=== PATIENT | male | born 1945 | race Caucasian/White ===

== ENCOUNTER 2018-05-03 11:10 | Inpatient (IN) | payer OTHER, MEDICARE ==
[~2018-05-03] VITALS: Ht 170.2 cm; Wt 73.0 kg
[2018-05-03 11:46] LABS: HEMATOCRIT 43.9 % (38.0-50.0); HEMOGLOBIN 14.9 G/DL (12.5-16.6); MCH 30.5 PG (29.0-34.0); MCHC 33.9 G/DL (30.0-36.0); MCV 89.8 FL (86-99); PLATELET COUNT 206 K/uL (156-360); RBC DIS.WIDTH-CV 13.2 % (11.8-14.6); RBC DIS.WIDTH-SD 43.4 % (39-53); RED BLOOD COUNT 4.89 M/uL (4.00-5.50); WHITE BLOOD COUNT 5.9 K/uL (4.1-10.2)
[2018-05-03 11:55] LABS: CHLORIDE 102 mEq/L (99-109); POTASSIUM 4.8 mEq/L (3.7-5.4); SODIUM 139 mEq/L (136-147)
[2018-05-03 11:57] LABS: GLUCOSE 112 mg/dL (70-99)
[2018-05-03 12:01] LABS: CREATININE 1.2 mg/dL (0.6-1.3); GFR ESTIMATE (CALCULATED) > 59 mL/min/ (58.99-99999)
[2018-05-03 12:02] LABS: UREA NITROGEN (BUN) 21 mg/dL (9-23)
[2018-05-03 13:42] LABS: APPEARANCE CLEAR ((CLEAR)); BILIRUBIN NEGATIVE; BLOOD NEGATIVE; COLOR STRAW ((YELLOW)); GLUCOSE (STRIP) NEGATIVE; KETONES NEGATIVE; LEUKOCYTES NEGATIVE; NITRITE NEGATIVE; PROTEIN (STRIP) NEGATIVE; SPECIFIC GRAVITY 1.006 (1.000-1.030); UCUL ADDED? NO; UROBILINOGEN 0.2 MG/DL (0.2-1.0)
[2018-05-03] MEDS ORDERED: LOSARTAN POTAS100 MG PO (14:23)
[2018-05-03] MEDS ORDERED: GLIMEPIRIDE1 MG PO (14:24)
[2018-05-03] MEDS ORDERED: CLONIDINE HCL0.2 MG PO (14:25)
[2018-05-03] MEDS ORDERED: MELOXICAM15 MG PO (14:26)
[2018-05-03] MEDS ORDERED: BENADRYL ALLERG25 MG PO (14:28)
[2018-05-03] MEDS ORDERED: TRIAMCINOLONE A30 GM TP (14:29)
[2018-05-03 16:00] LABS: TROP-I INTERPRETATION NEGATIVE; TROPONIN-I < 0.01 ng/mL (0.0-0.30)
[2018-05-03 16:08] LABS: THYROTROPIN (TSH) 4.3 MIU/L (0.4-5.5)
[2018-05-03 17:58] VITALS: BP 183/117
[2018-05-03 19:36] VITALS: BP 137/987
[2018-05-03 21:12] LABS: TROP-I INTERPRETATION NEGATIVE; TROPONIN-I < 0.01 ng/mL (0.0-0.30)
[2018-05-04] VITALS (8 sets, daily range): BP systolic 123–170; BP diastolic 57–102
[2018-05-04 06:05] LABS: HEMATOCRIT 41.9 % (38.0-50.0); MCHC 33.4 G/DL (30.0-36.0); MCV 89.9 FL (86-99); PLATELET COUNT 210 K/uL (156-360); RBC DIS.WIDTH-CV 13.4 % (11.8-14.6); RBC DIS.WIDTH-SD 43.9 % (39-53); RED BLOOD COUNT 4.66 M/uL (4.00-5.50); WHITE BLOOD COUNT 5.7 K/uL (4.1-10.2)
[2018-05-04 06:44] LABS: ALBUMIN 3.8 G/DL (3.2-4.8); ALKALINE PHOSPHATASE 56 IU/L (3-129); ALT (GPT) 8 IU/L (3-49); AST (GOT) 13 IU/L (2-34); CHLORIDE 100 MEQ/L (99-109); CREATININE 1.1 MG/DL (0.6-1.3); GFR ESTIMATE (CALCULATED) > 59 mL/min/ (58.99-99999); GLUCOSE 111 mg/dL (70-99); HDL CHOLESTEROL 30 MG/DL (Desirable>=40); LDL CHOLESTEROL 112 mg/dL (Desirable<100); NON-HDL CHOLESTEROL 150 mg/dL (Desirable<160); POTASSIUM 4.5 MEQ/L (3.7-5.4); SODIUM 137 MEQ/L (136-147); TOTAL BILIRUBIN 0.9 MG/DL (0.0-1.0); TOTAL CHOLESTEROL 180 mg/dL (Desirable<200); TOTAL PROTEIN 6.1 G/DL (6.4-8.3); TRIGLYCERIDES 188 MG/DL (Normal: <150); UREA NITROGEN (BUN) 20 mg/dL (9-23)
[2018-05-04 11:56] LABS: HEMOGLOBIN A1c (GLYCOHEMOGLOB) 6.2 % (Below 5.7)
[2018-05-05 03:48] VITALS: BP 130/74
[2018-05-05 07:41] VITALS: BP 153/93
[2018-05-05 11:33] VITALS: BP 115/72
[2018-05-05] MEDS ORDERED: ASPIR-LOW81 MG PO (12:28)
[2018-05-05] MEDS ORDERED: ATORVASTATIN CA40 MG PO (12:28)
== END 2018-05-05 14:59 | disposition home or self-care (01) | DRG 66 ==
LOC: EME 11:10 → EDOF 14:21 → 5SOUTH 14:21 → ENRESERV 14:23 → 5SOUTH 17:34 → ENPENDDIS 05-05 13:14 → 5SOUTH 05-05 14:59
PROVIDERS: Internal Medicine; Physician Assistant
DX: I63.9 Cerebral infarction, unspecified (principal); R41.0 Disorientation, unspecified; R41.3 Other amnesia; I10 Essential (primary) hypertension; E11.9 Type 2 diabetes mellitus without complications; R29.701 NIHSS score 1; R40.2412 Glasgow coma scale score 13-15, at arrival to emergency department; Z79.84 Long term (current) use of oral hypoglycemic drugs
CPT/HCPCS: 70450; 70544; 70549; 70551; 71046; 80048; 80053; 80061; 81003; 82306; 82607; 82746; 82948; 83036; 84443; 84484; 85027; 92523 GN; 93005; 93306; 99281; 99285; J0360; J1650